=== PATIENT | female | born 1940 | race Caucasian/White ===

== ENCOUNTER 2017-10-26 11:54 | Outpatient (CLI) | payer OTHER ==
[~2017-10-26 11:54] MED LIST: ALENDRONATE SODI5 MG PO; FORTAMET1000 MG PO; GABAPENTIN100 MG PO; LANTUS SOL100 UNIT/1; LEVO-T125 MCG PO; LOTREL 5-10 MG1 CAP PO; SIMVASTATIN20 MG PO
== END 2017-10-26 12:30 | disposition home or self-care (01) ==
LOC: NUCLEAR 11:54
DX: I11.9 Hypertensive heart disease without heart failure (principal); Z01.810 Encounter for preprocedural cardiovascular examination

== ENCOUNTER 2017-10-28 07:00 | Day surgery (SDC) | payer OTHER ==
[~2017-10-28] VITALS: Ht 152.4 cm; Wt 71.2 kg
== END 2017-10-29 08:00 | disposition home or self-care (01) ==
LOC: CIR.AMB 07:00 → SURH 08:20 → O/R 08:20 → SURG 08:20 → EDSTATUS 09:15 → SURH 09:15 → O/R 16:10 → SURG 16:10 → CIR.AMB 10-29 08:00 → SURG 10-29 18:54
DX: C19 Malignant neoplasm of rectosigmoid junction (principal); E03.8 Other specified hypothyroidism; I10 Essential (primary) hypertension; E11.9 Type 2 diabetes mellitus without complications; F17.210 Nicotine dependence, cigarettes, uncomplicated

== ENCOUNTER 2017-12-24 11:29 | Inpatient (IN) | payer OTHER ==
[~2017-12-24] VITALS: Ht 157.5 cm; Wt 66.2 kg
[2017-12-24] MEDS ORDERED: OMEPRAZOLE20 MG PO (12:25)
[2017-12-24] MEDS ORDERED: FORTAMET1000 MG PO (12:26)
[2018-01-14] MEDS ORDERED: Neurin-Sl Tablet Sl SL (14:00)
[2018-01-14] MEDS ORDERED: TOPROL XL100 M1 PO (14:00)
[2018-01-14] MEDS ORDERED: Intestinex CAP PO (14:00)
[2018-01-14] MEDS ORDERED: FORTAMET1000 MG PO (14:00)
[2018-01-14] MEDS ORDERED: LANTUS SOL100 UNIT/1 SUBCUTANEO (14:00)
[2018-01-14] MEDS ORDERED: LOVENOX40 MG/0.4 SUBCUTANEO (14:00)
[2018-01-14] MEDS ORDERED: OMEPRAZOLE20 MG PO (14:00)
[2018-01-14] MEDS ORDERED: GABAPENTIN300 MG PO (14:00)
[2018-01-14] MEDS ORDERED: LEVO-T125 MCG PO (14:00)
[2018-01-14] MEDS ORDERED: SIMVASTATIN20 MG PO (14:00)
[2018-01-14] MEDS ORDERED: ALENDRONATE SOD70 MG PO (14:00)
[2018-01-14] MEDS ORDERED: ELIQUIS2.5 MG PO (14:00)
[2018-01-14] MEDS ORDERED: CARDIZEM60 MG PO (14:00)
== END 2018-01-14 14:16 | disposition home or self-care (01) | DRG 330 ==
LOC: EDSTATUS 11:30 → ADM 11:30 → O/R 12-31 05:30 → SURH 12-31 05:30 → MEDI 12-31 14:23 → SURH 12-31 14:23
PROVIDERS: Colon & Rectal Surgery; Obstetrics & Gynecology Gynecologic Oncology
PROC: 0UT94ZZ Resection of Uterus, Percutaneous Endoscopic Approach (ICD-10-PCS; 2017-12-31)
PROC: 0UT24ZZ Resection of Bilateral Ovaries, Percutaneous Endoscopic Approach (ICD-10-PCS; 2017-12-31)
PROC: 0UT74ZZ Resection of Bilateral Fallopian Tubes, Percutaneous Endoscopic Approach (ICD-10-PCS; 2017-12-31)
PROC: 07TC4ZZ Resection of Pelvis Lymphatic, Percutaneous Endoscopic Approach (ICD-10-PCS; 2017-12-31)
PROC: 0DJD8ZZ Inspection of Lower Intestinal Tract, Via Natural or Artificial Opening Endoscopic (ICD-10-PCS; 2017-12-31)
PROC: 4A033R1 Measurement of Arterial Saturation, Peripheral, Percutaneous Approach (ICD-10-PCS; 2017-12-31)
PROC: 4A12X4Z Monitoring of Cardiac Electrical Activity, External Approach (ICD-10-PCS; 2017-12-31)
PROC: 0DTN4ZZ Resection of Sigmoid Colon, Percutaneous Endoscopic Approach (ICD-10-PCS; principal; 2017-12-31 07:00)
PROC: 0DTP4ZZ Resection of Rectum, Percutaneous Endoscopic Approach (ICD-10-PCS; 2017-12-31 07:00)
PROC: B246ZZZ Ultrasonography of Right and Left Heart (ICD-10-PCS; 2018-01-05)
PROC: 30233N1 Transfusion of Nonautologous Red Blood Cells into Peripheral Vein, Percutaneous Approach (ICD-10-PCS; 2018-01-09)
DX: C20 Malignant neoplasm of rectum (principal); I97.89 Other postprocedural complications and disorders of the circulatory system, not elsewhere classified; K91.840 Postprocedural hemorrhage of a digestive system organ or structure following a digestive system procedure; D62 Acute posthemorrhagic anemia; D25.1 Intramural leiomyoma of uterus; R59.0 Localized enlarged lymph nodes; I10 Essential (primary) hypertension; E11.9 Type 2 diabetes mellitus without complications; E03.8 Other specified hypothyroidism; F17.210 Nicotine dependence, cigarettes, uncomplicated; I48.0 Paroxysmal atrial fibrillation; R55 Syncope and collapse